=== PATIENT | male | born 1970 | race Caucasian/White ===

== ENCOUNTER 2022-02-20 09:45 | Emergency (ER) | payer MEDICAID ==
[~2022-02-20] VITALS: Ht 188 cm; Wt 114.8 kg
[2022-02-20 09:54] VITALS: BP 157/93
--- NOTE | 2022-02-20 09:56 | NUR ---
AMBULATED TO BED 4
[2022-02-20] MEDS ORDERED: TETRACAINE HCL/PF 0.5% OPTH 4 ML BTL OP ONE (10:00)
[2022-02-20] MEDS ORDERED: FLUORESCEIN OPTH STRIP 1 MG OP ONE (10:00)
[2022-02-20] MEDS ORDERED: IBUP-2213 PO (11:29)
[2022-02-20] MEDS ORDERED: ERYT5OIN58 OP (11:29)
--- NOTE | 2022-02-20 11:35 | NUR ---
Patient discharged with v/s stable. Written and verbal after care instructions ABOUT CORNEAL ABRASION given and explained. Patient alert, oriented and verbalized understanding of instructions. Ambulatory with steady gait. All questions addressed prior to discharge. ID band removed. Patient advised to follow up with PMD. Rx of ERYTHROMYCIN AND IBUPROFEN given. Patient educated on indication of medication including possible reaction and side effects. Opportunity to ask questions provided and answered.
== END 2022-02-20 12:12 | disposition home or self-care (01) ==
LOC: MED 09:45
DX: H53.142 Visual discomfort, left eye (principal)
CPT/HCPCS: 99283